=== PATIENT | female | born 1960 | race Caucasian/White ===

== ENCOUNTER 2020-06-18 13:35 | Inpatient (IN) | payer BC ==
[2020-06-18] MEDS ORDERED: Sodium Chloride 0.9% 1,000 ML IV SCH ×2 (13:45→14:45)
[2020-06-18] MEDS ORDERED: Ondansetron 4 MG/2 ML SDV IVPUSH ONE (15:27)
--- NOTE | 2020-06-18 15:32 | EDM.PDOC ---
ED HPI GENERAL MEDICAL PROBLEM - General Chief Complaint: General Stated Complaint: COVID WORSENING Time Seen by Provider: 06/18/20 13:50 Source of Information: Reports: Patient History Limitations: Reports: No Limitations - History of Present Illness INITIAL COMMENTS - FREE TEXT/NARRATIVE: pt had a positive Covid on Sunday. She has been at home and not eating and drinking well. Her kids have been bringing things to her but are not able to take care of her. She has been nauseated. She feels very weak. She has not vomitied but she has been having sig diarrhea. She has not had blood in the stool. Onset: Gradual, Other ( pt has been sick for about 8-10 days. ) Duration: Hour(s): Location: Reports: Chest, Other (pt is getting very sob when she ambulates. Her sAats do drop in the low 80s. ) Associated Symptoms: Reports: Diaphoresis, Loss of Appetite, Nausea/Vomiting, Ot her ( diarrhea. 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 Musculoskeletal History: Reports: Other (See Below) Other Musculoskeletal History: right elbow pain Endocrine/Metabolic History: Reports: Diabetes, Type II - Infectious Disease History Infectious Disease History: Reports: Chicken Pox - Past Surgical History Other HEENT Surgeries/Procedures: thorwaltz bursa Other Female Surgeries/Procedures: right oophorectomy Other Musculoskeletal Surgeries/Procedures:: ankle surgery Dermatological Surgical History: Reports: Other (See Below) Social & Family History - Tobacco Use Tobacco Use Status *Q: Never Tobacco User Second Hand Smoke Exposure: No - Caffeine Use Caffeine Use: Reports: Soda, Tea - Recreational Drug Use Recreational Drug Use: No ED ROS GENERAL - Review of Systems Review Of Systems: See Below Constitutional: Reports: No Symptoms HEENT: Reports: No Symptoms Respiratory: Reports: Shortness of Breath, Other (pt is sob with any activity. ) Cardiovascular: Reports: No Symptoms Endocrine: Reports: No Symptoms GI/Abdominal: Reports: Diarrhea, Decreased Appetite, Nausea : Reports: No Symptoms Musculoskeletal: Reports: No Symptoms Skin: Reports: No Symptoms Neurological: Reports: No Symptoms Psychiatric: Reports: Depression ED EXAM, GENERAL - Physical Exam Exam: See Below Free Text/Narrative:: pt arrived with sob with any activity. She is eating and drinking poorly. She is coughing. She is complaining of severe diarrhe.a Exam Limited By: No Limitations General Appearance: Alert, Anxious, Mild Distress Ears: Normal TMs Nose: Normal Inspection Throat/Mouth: Normal Inspection Head: Atraumatic Neck: Normal Inspection Respiratory/Chest: Decreased Breath Sounds, Rhonchi Cardiovascular: Regular Rate, Rhythm GI/Abdominal: Soft, Non-Tender (Female) Exam: Deferred Rectal (Female) Exam: Deferred Back Exam: Normal Inspection Extremities: Normal Inspection Neurological: Alert, Oriented, Normal Cognition Psychiatric: Flat Affect Course - Vital Signs Last Recorded V/S: Last Vital Signs Temp 36.3 C 06/18/20 13:57 Pulse 87 06/18/20 14:25 Resp 26 H 06/18/20 14:25 BP 166/84 H 06/18/20 14:25 Pulse Ox 90 L 06/18/20 14:25 - Orders/Labs/Meds Orders: Active Orders 24 hr Category Date Time Status Chest 1V Frontal [CR] Stat Exams 06/18/20 13:40 Taken UA W/MICROSCOPIC [URIN] Urgent Lab 06/18/20 13:38 Ordered Ondansetron [Zofran] Med 06/18/20 15:27 Once 4 mg IVPUSH ONETIME ONE Sodium Chloride 0.9% [Normal Saline] 1,000 ml Med 06/18/20 13:45 Active IV ASDIRECTED Sodium Chloride 0.9% [Normal Saline] 1,000 ml Med 06/18/20 14:45 Active IV ASDIRECTED Medication Orders Sodium Chloride (Normal Saline) 1,000 mls @ 999 mls/hr IV ASDIRECTED NINA Last Admin: 06/18/20 14:07 Dose: 999 mls/hr Documented by: EDNA Sodium Chloride (Normal Saline) 1,000 mls @ 250 mls/hr IV ASDIRECTED [facility] Labs: Laboratory Tests 06/18/20 06/18/20 06/18/20 Range/Units 13:55 13:55 13:55 WBC 5.8 (4.5-11.0) K/uL RBC 4.99 (3.30-5.50) M/uL Hgb 13.0 (12.0-15.0) g/dL Hct 39.8 (36.0-48.0) % MCV 80 (80-98) fL MCH 26 L (27-31) pg MCHC 33 (32-36) % Plt Count 267 (150-400) K/uL Neut % (Auto) 63 (36-66) % Lymph % (Auto) 24 (24-44) % [place] % (Auto) 12 H (2-6) % Eos % (Auto) 0 L (2-4) % Baso % (Auto) 0 (0-1) % D-Dimer, Quantitative 774.6 H (0.0-500.0) ng/mL Sodium 139 L (140-148) mmol/L Potassium 3.5 L (3.6-5.2) mmol/L Chloride 100 (100-108) mmol/L Carbon Dioxide 27 (21-32) mmol/L Anion Gap 15.5 H (5.0-14.0) mmol/L BUN 12 (7-18) mg/dL Creatinine 0.8 (0.6-1.0) mg/dL Est Cr Clr Drug Dosing 65.38 mL/min Estimated GFR (MDRD) > 60 (>60) Glucose 128 H (74-106) mg/dL Calcium 8.8 (8.5-10.1) mg/dL Total Bilirubin 0.3 (0.2-1.0) mg/dL AST 42 H D (15-37) U/L ALT 42 (12-78) U/L Alkaline Phosphatase 59 (46-116) U/L C-Reactive Protein 7.82 H (0.0-0.3) mg/dL Total Protein 7.1 (6.4-8.2) g/dL Albumin 2.9 L (3.4-5.0) g/dL Globulin 4.2 H (2.3-3.5) g/dL Albumin/Globulin Ratio 0.7 L (1.2-2.2) Meds: Medications Generic Name Dose Route Start Last Admin Trade Name Lissette PRN Reason Stop Dose Admin Sodium Chloride 1,000 mls @ 999 mls/hr 06/18/20 13:45 06/18/20 14:07 Normal Saline IV 999 mls/hr ASDIRECTED NINA Administration Sodium Chloride 1,000 mls @ 250 mls/hr 06/18/20 14:45 Normal Saline IV ASDIRECTED NINA - Re-Assessments/Exams Free Text/Narrative Re-Assessment/Exam: 06/18/20 15:34 pt has a ddimer at over 700. Her crp is greater than 7. Departure - Departure Time of Disposition: 15:35 Disposition: Admitted As Inpatient 67 Condition: Fair Clinical Impression: COVID-19, Hypoxia, Dehydration - Discharge Information Referrals: PCP,None [Primary Care Provider] - Care Plan Goals: admit to Dr Miguel Sepsis Event Note (ED) - Evaluation Sepsis Screening Result: Possible Sepsis Risk - Focused Exam Vital Signs: Vital Signs Temp Pulse Resp BP Pulse Ox 06/18/20 14:25 87 26 H 166/84 H 90 L 06/18/20 13:57 36.3 C 92 17 165/91 H 93 L 06/18/20 13:45 36.3 C 92 17 165/91 H 93 L - My Orders Last 24 Hours: My Active Orders 06/18/20 13:38 UA W/MICROSCOPIC [URIN] Urgent 06/18/20 13:40 Chest 1V Frontal [CR] Stat 06/18/20 13:45 Sodium Chloride 0.9% [Normal Saline] 1,000 ml IV ASDIRECTED 06/18/20 14:45 Sodium Chloride 0.9% [Normal Saline] 1,000 ml IV ASDIRECTED 06/18/20 15:27 Ondansetron [Zofran] 4 mg IVPUSH ONETIME ONE - Assessment/Plan Last 24 Hours: My Active Orders 06/18/20 13:38 UA W/MICROSCOPIC [URIN] Urgent 06/18/20 13:40 Chest 1V Frontal [CR] Stat 06/18/20 13:45 Sodium Chloride 0.9% [Normal Saline] 1,000 ml IV ASDIRECTED 06/18/20 14:45 Sodium Chloride 0.9% [Normal Saline] 1,000 ml IV ASDIRECTED 06/18/20 15:27 Ondansetron [Zofran] 4 mg IVPUSH ONETIME ONE
[2020-06-18] MEDS ORDERED: Ondansetron 4 MG/2 ML SDV IV PRN (16:37)
[2020-06-18] MEDS ORDERED: Non-Formulary Medication 1 Each (Metformin [Glucophage Xr] 1,000 MG) PO SCH (17:00)
--- NOTE | 2020-06-18 17:55 | PCM.HP.2 ---
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 Since that time she has had some diminished but not complete loss of taste/smell. She has had weakness, dyspnea, increased work of breathing, cough, fever between 100-101.9 F. 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 She noted, specifically, not being able to get up from the chair. She is currently on 2-4 L NC oxygen and is maintaining her oxygenation in the 92-95% range. She has a known h/o Ulcerative colitis which is actively treated. She also has h/o DM. She is a FULL CODE. 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 Musculoskeletal History: Reports: Other (See Below) Other Musculoskeletal History: right elbow pain Endocrine/Metabolic History: Reports: Diabetes, Type II - Infectious Disease History Infectious Disease History: Reports: Chicken Pox - Past Surgical History Other HEENT Surgeries/Procedures: thorwaltz bursa Other Female Surgeries/Procedures: right oophorectomy Other Musculoskeletal Surgeries/Procedures:: ankle surgery Dermatological Surgical History: Reports: Other (See Below) Social & Family History - Tobacco Use Tobacco Use Status *Q: Never Tobacco User Second Hand Smoke Exposure: No - Caffeine Use Caffeine Use: Reports: Soda - Recreational Drug Use Recreational Drug Use: No H&P Review of Systems - Review of Systems: Review Of Systems: See Below General: Reports: Fever, Chills, Malaise, Weakness, Fatigue HEENT: Reports: Sore Throat Pulmonary: Reports: Shortness of Breath, Wheezing, Cough Cardiovascular: Reports: No Symptoms Gastrointestinal: Reports: No Symptoms Genitourinary: Reports: No Symptoms Musculoskeletal: Reports: No Symptoms Skin: Reports: No Symptoms Psychiatric: Reports: No Symptoms Neurological: Reports: No Symptoms Hematologic/Lymphatic: Reports: No Symptoms Immunologic: Reports: No Symptoms Exam - Exam Exam: See Below - Vital Signs Vital Signs: Last Vital Signs Temp 99.8 F 06/18/20 16:37 Pulse 79 06/18/20 16:37 Resp 16 06/18/20 16:37 BP 174/96 H 06/18/20 16:37 Pulse Ox 97 06/18/20 17:19 Weight: 236 lb 2 oz - Exam Quality Assessment: Supplemental Oxygen, DVT Prophylaxis. No: Central Line/PICC, Urinary Catheter General: Alert, Oriented, Cooperative, Moderate Distress HEENT: PERRLA, EOMI, Pupils Equal, Pupils Reactive Lungs: Decreased Breath Sounds, Crackles. No: Clear to Auscultation, Normal Respiratory Effort Cardiovascular: Regular Rate, Regular Rhythm, Normal S1, Normal S2. No: Bradycardia, Tachycardia, Systolic Murmur, Diastolic Murmur GI/Abdominal Exam: Normal Bowel Sounds, Soft, Non-Tender, No Distention, No Abnormal Bruit, No Mass Back Exam: Normal Inspection Extremities: Normal Inspection, Normal Range of Motion, Normal Capillary Refill Peripheral Pulses: 4+: Posterior Tibial (L), Posterior Tibial (R), Dorsalis Pe dis (L), Dorsalis Pedis (R) Skin: Warm, Dry, Intact Neurological: Cranial Nerves Intact, Reflexes Equal Bilateral, Strength Equal Bilateral, Normal Speech, Normal Tone, Sensation Intact Neuro Extensive - Mental Status: Alert, Oriented x3, Normal Mood/Affect, Normal Cognition, Memory Intact Neuro Extensive - Motor, Sensory, Reflexes: CN II-XII Intact, Normal Gait, Normal Reflexes DTR: 2+: Patella (L), Patella (R) Psychiatric: Alert, Normal Affect, Normal Mood - Patient Data Lab Results Last 24 hrs: Laboratory Results - last 24 hr 06/18/20 06/18/20 06/18/20 Range/Units 13:55 13:55 13:55 WBC 5.8 (4.5-11.0) K/uL RBC 4.99 (3.30-5.50) M/uL Hgb 13.0 (12.0-15.0) g/dL Hct 39.8 (36.0-48.0) % MCV 80 (80-98) fL MCH 26 L (27-31) pg MCHC 33 (32-36) % Plt Count 267 (150-400) K/uL Neut % (Auto) 63 (36-66) % Lymph % (Auto) 24 (24-44) % [place] % (Auto) 12 H (2-6) % Eos % (Auto) 0 L (2-4) % Baso % (Auto) 0 (0-1) % D-Dimer, Quantitative 774.6 H (0.0-500.0) ng/mL Sodium 139 L (140-148) mmol/L Potassium 3.5 L (3.6-5.2) mmol/L Chloride 100 (100-108) mmol/L Carbon Dioxide 27 (21-32) mmol/L Anion Gap 15.5 H (5.0-14.0) mmol/L BUN 12 (7-18) mg/dL Creatinine 0.8 (0.6-1.0) mg/dL Est Cr Clr Drug Dosing 65.38 mL/min Estimated GFR (MDRD) > 60 (>60) Glucose 128 H (74-106) mg/dL Calcium 8.8 (8.5-10.1) mg/dL Total Bilirubin 0.3 (0.2-1.0) mg/dL AST 42 H D (15-37) U/L ALT 42 (12-78) U/L Alkaline Phosphatase 59 (46-116) U/L C-Reactive Protein 7.82 H (0.0-0.3) mg/dL Total Protein 7.1 (6.4-8.2) g/dL Albumin 2.9 L (3.4-5.0) g/dL Globulin 4.2 H (2.3-3.5) g/dL Albumin/Globulin Ratio 0.7 L (1.2-2.2) Result Diagrams: 06/18/20 13:55 06/18/20 13:55 Sepsis Event Note - Evaluation Sepsis Screening Result: Possible Sepsis Risk - Focused Exam Vital Signs: Vital Signs Temp Pulse Resp BP Pulse Ox Pulse Ox 06/18/20 17:19 97 06/18/20 16:37 99.8 F 79 16 174/96 H 97 97 06/18/20 15:57 83 15 169/85 H 97 06/18/20 14:25 87 26 H 166/84 H 90 L 06/18/20 13:57 97.4 F 92 17 165/91 H 93 L 06/18/20 13:45 97.4 F 92 17 165/91 H 93 L Problem List Initiated/Reviewed/Updated: Yes Orders Last 24hrs: Active Orders 24 hr Category Date Time Status Patient Status [ADT] Routine ADT 06/18/20 16:37 Active Ambulate [RC] QID Care 06/18/20 16:37 Active Ambulate [RC] QID Care 06/18/20 16:37 Active Blood Glucose Check, Bedside [RC] QIDACANDBED Care 06/18/20 16:37 Active Cardiac Monitoring [RC] .As Directed Care 06/18/20 16:38 Active Communication Order [RC] PER UNIT ROUTINE Care 06/18/20 16:43 Active Diabetes Education [RC] Click to Edit Care 06/18/20 16:45 Active Notify Provider [RC] PRN Care 06/18/20 16:45 Active Oxygen Therapy [RC] PRN Care 06/18/20 16:37 Active Positioning, Patient [RC] ASDIRECTED Care 06/18/20 16:40 Active Pulse Oximetry [RC] CONTINUOUS Care 06/18/20 16:38 Active Up to Chair [RC] QID Care 06/18/20 16:37 Active VTE/DVT Education [RC] Per Unit Routine Care 06/18/20 16:37 Active Verify Patient Consent Obtain [RC] ASDIRECTED Care 06/18/20 16:37 Active Vital Signs [RC] Q4H Care 06/18/20 16:37 Active Regular Diet [DIET] Diet 06/18/20 Dinner Active Chest 1V Frontal [CR] Stat Exams 06/18/20 13:40 Taken C-REACTIVE PROTEIN [CHEM] DAILY Lab 06/19/20 16:37 Ordered C-REACTIVE PROTEIN [CHEM] DAILY Lab 06/19/20 16:45 Ordered C-REACTIVE PROTEIN [CHEM] DAILY Lab 06/20/20 16:37 Ordered C-REACTIVE PROTEIN [CHEM] DAILY Lab 06/20/20 16:45 Ordered C-REACTIVE PROTEIN [CHEM] DAILY Lab 06/21/20 16:37 Ordered C-REACTIVE PROTEIN [CHEM] DAILY Lab 06/21/20 16:45 Ordered C-REACTIVE PROTEIN [CHEM] DAILY Lab 06/22/20 16:37 Ordered C-REACTIVE PROTEIN [CHEM] DAILY Lab 06/22/20 16:45 Ordered CBC WITH AUTO DIFF [HEME] DAILY Lab 06/19/20 16:45 Ordered CBC WITH AUTO DIFF [HEME] DAILY Lab 06/20/20 16:45 Ordered CBC WITH AUTO DIFF [HEME] DAILY Lab 06/21/20 16:45 Ordered CBC WITH AUTO DIFF [HEME] DAILY Lab 06/22/20 16:45 Ordered COMPREHENSIVE METABOLIC PN,CMP [CHEM] DAILY Lab 06/19/20 16:45 Ordered COMPREHENSIVE METABOLIC PN,CMP [CHEM] DAILY Lab 06/20/20 16:45 Ordered COMPREHENSIVE METABOLIC PN,CMP [CHEM] DAILY Lab 06/21/20 16:45 Ordered COMPREHENSIVE METABOLIC PN,CMP [CHEM] DAILY Lab 06/22/20 16:45 Ordered D-DIMER QUANTITATIVE [COAG] DAILY Lab 06/19/20 16:37 Ordered D-DIMER QUANTITATIVE [COAG] DAILY Lab 06/20/20 16:37 Ordered D-DIMER QUANTITATIVE [COAG] DAILY Lab 06/21/20 16:37 Ordered D-DIMER QUANTITATIVE [COAG] DAILY Lab 06/22/20 16:37 Ordered FERRITIN [CHEM] DAILY Lab 06/19/20 16:37 Ordered FERRITIN [CHEM] DAILY Lab 06/20/20 16:37 Ordered FERRITIN [CHEM] DAILY Lab 06/21/20 16:37 Ordered FERRITIN [CHEM] DAILY Lab 06/22/20 16:37 Ordered INFLUENZA A+B AG SCREEN [RM] Stat Lab 06/18/20 16:37 Ordered LACTATE DEHYDROGENASE,LDH [CHEM] DAILY Lab 06/19/20 16:37 Ordered LACTATE DEHYDROGENASE,LDH [CHEM] DAILY Lab 06/20/20 16:37 Ordered LACTATE DEHYDROGENASE,LDH [CHEM] DAILY Lab 06/21/20 16:37 Ordered LACTATE DEHYDROGENASE,LDH [CHEM] DAILY Lab 06/22/20 16:37 Ordered PROCALCITONIN [CHEM] DAILY Lab 06/19/20 16:37 Ordered PROCALCITONIN [CHEM] DAILY Lab 06/20/20 16:37 Ordered PROCALCITONIN [CHEM] DAILY Lab 06/21/20 16:37 Ordered PROCALCITONIN [CHEM] DAILY Lab 06/22/20 16:37 Ordered UA W/MICROSCOPIC [URIN] Urgent Lab 06/18/20 13:38 Ordered Acetaminophen [TylenoL] Med 06/18/20 16:37 Active 650 mg PO Q4H PRN Acetaminophen [TylenoL] Med 06/18/20 16:37 Active 650 mg PO Q4H PRN Alogliptin Benzoate [Alogliptin] Med 06/19/20 09:00 Active 25 mg PO DAILY Balsalazide [Colazal] Med 06/18/20 21:00 Pending 3 tab PO BID Enoxaparin [Lovenox] Med 06/18/20 16:45 Active 40 mg SUBCUT DAILY@1600 Insulin Lispro [HumaLOG] Med 06/18/20 17:00 Active See Protocol SUBCUT QIDACANDBED Ondansetron [Zofran ODT] Med 06/18/20 16:37 Active 4 mg PO Q6H PRN Ondansetron [Zofran] Med 06/18/20 16:37 Active 4 mg IV Q6H PRN Remdesivir (Eua) [Remdesivir (EUA)] 100 mg Med 06/19/20 16:00 Active Sodium Chloride 0.9% [Normal Saline] 100 ml IV Q24H Remdesivir (Eua) [Remdesivir (EUA)] 200 mg Med 06/18/20 18:00 Active Sodium Chloride 0.9% [Normal Saline] 250 ml IV ONETIME Sodium Chloride 0.9% [Normal Saline] 1,000 ml Med 06/18/20 14:45 Active IV ASDIRECTED dexAMETHasone [Decadron] Med 06/18/20 18:00 Active 6 mg IVPUSH DAILY@1600 metFORMIN [Glucophage] Med 06/18/20 17:00 Active 1,000 mg PO BIDMEALS Isolation [COMM] Routine Oth 06/18/20 16:42 Ordered Isolation [COMM] Stat Oth 06/18/20 16:37 Ordered Resuscitation Status Routine Resus Stat 06/18/20 16:37 Ordered Medication Orders Acetaminophen (Tylenol) 650 mg PO Q4H PRN PRN Reason: Fever Greater Than 101 Acetaminophen (Tylenol) 650 mg PO Q4H PRN PRN Reason: Pain (Mild 1-3)/fever Alogliptin Benzoate (Alogliptin) 25 mg PO DAILY [facility] Dexamethasone (Decadron) 6 mg IVPUSH DAILY@1600 [facility] Stop: 06/27/20 16:01 Enoxaparin Sodium (Lovenox) 40 mg SUBCUT DAILY@1600 NINA Sodium Chloride (Normal Saline) 1,000 mls @ 250 mls/hr IV ASDIRECTED [facility] Remdesivir 200 mg/ Sodium (Chloride) 250 mls @ 250 mls/hr IV ONETIME ONE Stop: 06/18/20 18:59 Remdesivir 100 mg/ Sodium (Chloride) 100 mls @ 100 mls/hr IV Q24H NINA Stop: 06/22/20 16:59 Insulin Human Lispro (Humalog) 0 unit SUBCUT QIDACANDBED [facility]; Protocol Metformin HCl (Glucophage) 1,000 mg PO BIDMEALS [facility] Non-Formulary Medication (Balsalazide [Colazal]) 3 tab PO BID NINA Ondansetron HCl (Zofran Odt) 4 mg PO Q6H PRN PRN Reason: Nausea able to take PO Ondansetron HCl (Zofran) 4 mg IV Q6H PRN PRN Reason: Nausea/Vomiting Assessment/Plan Comment:: ASSESSMENT AND PLAN: 1. HEENT Some loss of taste and smell most c/w COVID 19 2. Cardiac No active issues at present 3. Pulmonary COVID 19 active infection. positive test, elevated CPR, D-dimer, ferritin. On 2-4L NC with good effect - Oxygen to keep SpO2 between 90-96% - Start remdesivir 200 mg IV x 1 today, 100 mg IV daily thereafter (Day 1/5) - Dexamethasone 6 mg IV daily (Day 1/5) - Convalescent plasma 1 unit daily (Day 15) - Hold IV atbx for time being - Proning as appropriate - Discussed progression and course of COVID 19 up to and including possible intubation 4. Gastrointestinal Has known h/o UC which is currently stable - Hold immunosuppresives for time being 5. Renal/F/E/N PO as tolerated Monitor chemistries Caution with IV fluids 6. Endocrine Has h/o Type II DM - Continue metformin - SSI coverage - Anticipate increases in glucose with the initiation of dexamethasone 7. Infectious Disease Stable, COVID 19 as above 8. Neurological No active concerns other than generalized weakness due to COVID 9. Musculoskeletal No issues 10. Heme Stable 11. Psych/Mental health Stable, no active issues Disposition: Anticipate D/C to home when stabilized HOSPITALIST: Pablo Miguel M.D. 18 June 2020; 1800 h - Mortality Measure Prognosis:: Good
[2020-06-18] MEDS: Enoxaparin 40 MG/0.4 ML Syringe SUBCUT SCH ×2 (18:14→18:38)
[2020-06-18] MEDS: Insulin Lispro 100 Unit/ML 3 ML KwikPen SUBCUT SCH ×2 (18:15→21:41)
[2020-06-18] MEDS: metFORMIN 500 MG Tab PO SCH (18:15)
[2020-06-18] MEDS: Dexamethasone 4 MG/ML SDV IVPUSH SCH (18:17)
[2020-06-18] MEDS: Ondansetron 4 MG Tab.DIS PO PRN (18:25)
[2020-06-18] MEDS: Acetaminophen 325 MG Tab PO PRN (21:34)
[2020-06-19] MEDS: Acetaminophen 325 MG Tab PO PRN ×4 (06:20→20:21)
[2020-06-19] MEDS: Insulin Lispro 100 Unit/ML 3 ML KwikPen SUBCUT SCH ×4 (08:46→21:23)
[2020-06-19] MEDS: metFORMIN 500 MG Tab PO SCH ×2 (08:46→16:59)
[2020-06-19] MEDS: Ondansetron 4 MG Tab.DIS PO PRN (08:53)
--- NOTE | 2020-06-19 13:36 | PCM.PN ---
- General Info Date of Service: 06/19/20 Admission Dx/Problem (Free Text): 1. Acute COVID Pna 2. Hypoxia d/t 1 Subjective Update: Patient is still holding on 2 L NC oxygen. She is tolerating plasma, remdesivir, dexamethasone well. No other complaints noted. Patient is ambulating reasonably well. Functional Status: Reports: Pain Controlled, Tolerating Diet - Review of Systems General: Reports: Weakness, Fatigue HEENT: Reports: No Symptoms Pulmonary: Reports: Shortness of Breath, Cough Cardiovascular: Reports: No Symptoms Gastrointestinal: Reports: No Symptoms Genitourinary: Reports: No Symptoms Musculoskeletal: Reports: No Symptoms - Patient Data Vitals - Most Recent: Last Vital Signs Temp 99.0 F 06/19/20 11:09 Pulse 62 06/19/20 11:00 Resp 18 06/19/20 11:00 BP 152/68 H 06/19/20 11:00 Pulse Ox 95 06/19/20 11:00 Weight - Most Recent: 236 lb 2 oz I&O - Last 24 Hours: Intake & Output 06/18/20 06/19/20 06/19/20 22:59 06:59 14:59 Intake Total 250 1002 Output Total 250 1450 500 Balance 0 -448 -500 Lab Results Last 24 Hours: Laboratory Results - last 24 hr 06/18/20 06/18/20 06/18/20 Range/Units 13:38 13:55 13:55 WBC 5.8 (4.5-11.0) K/uL RBC 4.99 (3.30-5.50) M/uL Hgb 13.0 (12.0-15.0) g/dL Hct 39.8 (36.0-48.0) % MCV 80 (80-98) fL MCH 26 L (27-31) pg MCHC 33 (32-36) % Plt Count 267 (150-400) K/uL Neut % (Auto) 63 (36-66) % Lymph % (Auto) 24 (24-44) % [place] % (Auto) 12 H (2-6) % Eos % (Auto) 0 L (2-4) % Baso % (Auto) 0 (0-1) % D-Dimer, Quantitative 774.6 H (0.0-500.0) ng/mL Sodium (140-148) mmol/L Potassium (3.6-5.2) mmol/L Chloride (100-108) mmol/L Carbon Dioxide (21-32) mmol/L Anion Gap (5.0-14.0) mmol/L BUN (7-18) mg/dL Creatinine (0.6-1.0) mg/dL Est Cr Clr Drug Dosing mL/min Estimated GFR (MDRD) (>60) Glucose (74-106) mg/dL POC Glucose (74-106) MG/DL Calcium (8.5-10.1) mg/dL Ferritin (8-388) ng/ml Total Bilirubin (0.2-1.0) mg/dL AST (15-37) U/L ALT (12-78) U/L Alkaline Phosphatase (46-116) U/L Lactate Dehydrogenase (82-234) U/L C-Reactive Protein (0.0-0.3) mg/dL Total Protein (6.4-8.2) g/dL Albumin (3.4-5.0) g/dL Globulin (2.3-3.5) g/dL Albumin/Globulin Ratio (1.2-2.2) Procalcitonin ng/mL Urine Color Yellow (YELLOW) Urine Appearance Clear (CLEAR) Urine pH 6.0 (5.0-8.0) Ur Specific [place] >= 1.030 (1.008-1.030) Urine Protein 100 H (NEGATIVE) mg/dL Urine Glucose (UA) Negative (NEGATIVE) mg/dL Urine Ketones Trace H (NEGATIVE) mg/dL Urine Occult Blood Negative (NEGATIVE) Urine Nitrite Negative (NEGATIVE) Urine Bilirubin Negative (NEGATIVE) Urine Urobilinogen 0.2 (0.2-1.0) EU/dL Ur Leukocyte Esterase Negative (NEGATIVE) Urine RBC Not seen (0-5) Urine WBC 0-5 (0-5) Ur Epithelial Cells Few Urine Bacteria Not seen Blood Type 06/18/20 06/18/20 06/18/20 Range/Units 13:55 16:30 21:00 WBC (4.5-11.0) K/uL RBC (3.30-5.50) M/uL Hgb (12.0-15.0) g/dL Hct (36.0-48.0) % MCV (80-98) fL MCH (27-31) pg MCHC (32-36) % Plt Count (150-400) K/uL Neut % (Auto) (36-66) % Lymph % (Auto) (24-44) % [place] % (Auto) (2-6) % Eos % (Auto) (2-4) % Baso % (Auto) (0-1) % D-Dimer, Quantitative (0.0-500.0) ng/mL Sodium 139 L (140-148) mmol/L Potassium 3.5 L (3.6-5.2) mmol/L Chloride 100 (100-108) mmol/L Carbon Dioxide 27 (21-32) mmol/L Anion Gap 15.5 H (5.0-14.0) mmol/L BUN 12 (7-18) mg/dL Creatinine 0.8 (0.6-1.0) mg/dL Est Cr Clr Drug Dosing 65.38 mL/min Estimated GFR (MDRD) > 60 (>60) Glucose 128 H (74-106) mg/dL POC Glucose 118 H 191 H (74-106) MG/DL Calcium 8.8 (8.5-10.1) mg/dL Ferritin (8-388) ng/ml Total Bilirubin 0.3 (0.2-1.0) mg/dL AST 42 H D (15-37) U/L ALT 42 (12-78) U/L Alkaline Phosphatase 59 (46-116) U/L Lactate Dehydrogenase (82-234) U/L C-Reactive Protein 7.82 H (0.0-0.3) mg/dL Total Protein 7.1 (6.4-8.2) g/dL Albumin 2.9 L (3.4-5.0) g/dL Globulin 4.2 H (2.3-3.5) g/dL Albumin/Globulin Ratio 0.7 L (1.2-2.2) Procalcitonin ng/mL Urine Color (YELLOW) Urine Appearance (CLEAR) Urine pH (5.0-8.0) Ur Specific [place] (1.008-1.030) Urine Protein (NEGATIVE) mg/dL Urine Glucose (UA) (NEGATIVE) mg/dL Urine Ketones (NEGATIVE) mg/dL Urine Occult Blood (NEGATIVE) Urine Nitrite (NEGATIVE) Urine Bilirubin (NEGATIVE) Urine Urobilinogen (0.2-1.0) EU/dL Ur Leukocyte Esterase (NEGATIVE) Urine RBC (0-5) Urine WBC (0-5) Ur Epithelial Cells Urine Bacteria Blood Type 06/18/20 06/19/20 06/19/20 Range/Units 23:58 06:00 06:00 WBC (4.5-11.0) K/uL RBC (3.30-5.50) M/uL Hgb (12.0-15.0) g/dL Hct (36.0-48.0) % MCV (80-98) fL MCH (27-31) pg MCHC (32-36) % Plt Count (150-400) K/uL Neut % (Auto) (36-66) % Lymph % (Auto) (24-44) % [place] % (Auto) (2-6) % Eos % (Auto) (2-4) % Baso % (Auto) (0-1) % D-Dimer, Quantitative 517.09 H (0.0-500.0) ng/mL Sodium 139 L (140-148) mmol/L Potassium 3.9 (3.6-5.2) mmol/L Chloride 101 (100-108) mmol/L Carbon Dioxide 27 (21-32) mmol/L Anion Gap 14.9 H (5.0-14.0) mmol/L BUN 11 (7-18) mg/dL Creatinine 0.6 (0.6-1.0) mg/dL Est Cr Clr Drug Dosing 87.18 mL/min Estimated GFR (MDRD) > 60 (>60) Glucose 164 H (74-106) mg/dL POC Glucose (74-106) MG/DL Calcium 8.5 (8.5-10.1) mg/dL Ferritin 202 (8-388) ng/ml Total Bilirubin 0.3 (0.2-1.0) mg/dL AST 32 (15-37) U/L ALT 41 (12-78) U/L Alkaline Phosphatase 57 (46-116) U/L Lactate Dehydrogenase 269 H (82-234) U/L C-Reactive Protein 6.00 H (0.0-0.3) mg/dL Total Protein 7.2 (6.4-8.2) g/dL Albumin 2.9 L (3.4-5.0) g/dL Globulin 4.3 H (2.3-3.5) g/dL Albumin/Globulin Ratio 0.7 L (1.2-2.2) Procalcitonin ng/mL Urine Color (YELLOW) Urine Appearance (CLEAR) Urine pH (5.0-8.0) Ur Specific [place] (1.008-1.030) Urine Protein (NEGATIVE) mg/dL Urine Glucose (UA) (NEGATIVE) mg/dL Urine Ketones (NEGATIVE) mg/dL Urine Occult Blood (NEGATIVE) Urine Nitrite (NEGATIVE) Urine Bilirubin (NEGATIVE) Urine Urobilinogen (0.2-1.0) EU/dL Ur Leukocyte Esterase (NEGATIVE) Urine RBC (0-5) Urine WBC (0-5) Ur Epithelial Cells Urine Bacteria Blood Type A POSITIVE 06/19/20 06/19/20 06/19/20 Range/Units 06:00 06:00 07:30 WBC 3.6 L (4.5-11.0) K/uL RBC 4.82 (3.30-5.50) M/uL Hgb 12.6 (12.0-15.0) g/dL Hct 38.3 (36.0-48.0) % MCV 80 (80-98) fL MCH 26 L (27-31) pg MCHC 33 (32-36) % Plt Count 292 (150-400) K/uL Neut % (Auto) 64 (36-66) % Lymph % (Auto) 28 (24-44) % [place] % (Auto) 8 H (2-6) % Eos % (Auto) 0 L (2-4) % Baso % (Auto) 0 (0-1) % D-Dimer, Quantitative (0.0-500.0) ng/mL Sodium (140-148) mmol/L Potassium (3.6-5.2) mmol/L Chloride (100-108) mmol/L Carbon Dioxide (21-32) mmol/L Anion Gap (5.0-14.0) mmol/L BUN (7-18) mg/dL Creatinine (0.6-1.0) mg/dL Est Cr Clr Drug Dosing mL/min Estimated GFR (MDRD) (>60) Glucose (74-106) mg/dL POC Glucose 136 H (74-106) MG/DL Calcium (8.5-10.1) mg/dL Ferritin (8-388) ng/ml Total Bilirubin (0.2-1.0) mg/dL AST (15-37) U/L ALT (12-78) U/L Alkaline Phosphatase (46-116) U/L Lactate Dehydrogenase (82-234) U/L C-Reactive Protein (0.0-0.3) mg/dL Total Protein (6.4-8.2) g/dL Albumin (3.4-5.0) g/dL Globulin (2.3-3.5) g/dL Albumin/Globulin Ratio (1.2-2.2) Procalcitonin < 0.05 ng/mL Urine Color (YELLOW) Urine Appearance (CLEAR) Urine pH (5.0-8.0) Ur Specific [place] (1.008-1.030) Urine Protein (NEGATIVE) mg/dL Urine Glucose (UA) (NEGATIVE) mg/dL Urine Ketones (NEGATIVE) mg/dL Urine Occult Blood (NEGATIVE) Urine Nitrite (NEGATIVE) Urine Bilirubin (NEGATIVE) Urine Urobilinogen (0.2-1.0) EU/dL Ur Leukocyte Esterase (NEGATIVE) Urine RBC (0-5) Urine WBC (0-5) Ur Epithelial Cells Urine Bacteria Blood Type 06/19/20 Range/Units 11:30 WBC (4.5-11.0) K/uL RBC (3.30-5.50) M/uL Hgb (12.0-15.0) g/dL Hct (36.0-48.0) % MCV (80-98) fL MCH (27-31) pg MCHC (32-36) % Plt Count (150-400) K/uL Neut % (Auto) (36-66) % Lymph % (Auto) (24-44) % [place] % (Auto) (2-6) % Eos % (Auto) (2-4) % Baso % (Auto) (0-1) % D-Dimer, Quantitative (0.0-500.0) ng/mL Sodium (140-148) mmol/L Potassium (3.6-5.2) mmol/L Chloride (100-108) mmol/L Carbon Dioxide (21-32) mmol/L Anion Gap (5.0-14.0) mmol/L BUN (7-18) mg/dL Creatinine (0.6-1.0) mg/dL Est Cr Clr Drug Dosing mL/min Estimated GFR (MDRD) (>60) Glucose (74-106) mg/dL POC Glucose 149 H (74-106) MG/DL Calcium (8.5-10.1) mg/dL Ferritin (8-388) ng/ml Total Bilirubin (0.2-1.0) mg/dL AST (15-37) U/L ALT (12-78) U/L Alkaline Phosphatase (46-116) U/L Lactate Dehydrogenase (82-234) U/L C-Reactive Protein (0.0-0.3) mg/dL Total Protein (6.4-8.2) g/dL Albumin (3.4-5.0) g/dL Globulin (2.3-3.5) g/dL Albumin/Globulin Ratio (1.2-2.2) Procalcitonin ng/mL Urine Color (YELLOW) Urine Appearance (CLEAR) Urine pH (5.0-8.0) Ur Specific [place] (1.008-1.030) Urine Protein (NEGATIVE) mg/dL Urine Glucose (UA) (NEGATIVE) mg/dL Urine Ketones (NEGATIVE) mg/dL Urine Occult Blood (NEGATIVE) Urine Nitrite (NEGATIVE) Urine Bilirubin (NEGATIVE) Urine Urobilinogen (0.2-1.0) EU/dL Ur Leukocyte Esterase (NEGATIVE) Urine RBC (0-5) Urine WBC (0-5) Ur Epithelial Cells Urine Bacteria Blood Type [place] Results Last 24 Hours: Microbiology 06/18/20 18:05 Influenza Type A Antigen Screen - Final Nasopharyngeal Swab - Nare, Unspecified NEGATIVE INFLUENZA A VIRUS AG REFERENCE RANGE: NEGATIVE Influenza Type B Antigen Screen - Final NEGATIVE INFLUENZA B VIRUS AG REFERENCE RANGE: NEGATIVE Med Orders - Current: Current Medications Acetaminophen (Tylenol) 650 mg PO Q4H PRN PRN Reason: Fever Greater Than 101 Last Admin: 06/19/20 10:39 Dose: 650 mg Documented by: Acetaminophen (Tylenol) 650 mg PO Q4H PRN PRN Reason: Pain (Mild 1-3)/fever Last Admin: 06/18/20 21:34 Dose: 650 mg Documented by: Alogliptin Benzoate (Alogliptin) 25 mg PO DAILY [facility] Last Admin: 06/19/20 08:45 Dose: 25 mg Documented by: Dexamethasone (Decadron) 6 mg IVPUSH DAILY@1600 [facility] Stop: 06/27/20 16:01 Last Admin: 06/18/20 18:17 Dose: 6 mg Documented by: Enoxaparin Sodium (Lovenox) 40 mg SUBCUT DAILY@1600 [facility] Last Admin: 06/18/20 18:38 Dose: 40 mg Documented by: Remdesivir 100 mg/ Sodium (Chloride) 100 mls @ 100 mls/hr IV Q24H [facility] Stop: 06/22/20 16:59 Insulin Human Lispro (Humalog) 0 unit SUBCUT QIDACANDBED [facility]; Protocol Last Admin: 06/19/20 12:31 Dose: Not Given Documented by: Metformin HCl (Glucophage) 1,000 mg PO BIDNVALS [facility] Last Admin: 06/19/20 08:46 Dose: 1,000 mg Documented by: (Balsalazide [ Colazal] 3 Tab) Own Med 3 tab PO BID [facility] Last Admin: 06/19/20 08:48 Dose: 3 tab Documented by: Ondansetron HCl (Zofran Odt) 4 mg PO Q6H PRN PRN Reason: Nausea able to take PO Last Admin: 06/19/20 08:53 Dose: 4 mg Documented by: Ondansetron HCl (Zofran) 4 mg IV Q6H PRN PRN Reason: Nausea/Vomiting Discontinued Medications Sodium Chloride (Normal Saline) 1,000 mls @ 999 [facility] Last Admin: 06/18/20 14:07 Dose: 999 mls/hr Documented by: Sodium Chloride (Normal Saline) 1,000 mls @ 250 mls/hr IV ASDIRECTED [facility] Remdesivir 200 mg/ Sodium (Chloride) 250 mls @ 250 mls/hr IV ONETIME ONE Stop: 06/18/20 18:59 Last Admin: 06/18/20 18:16 Dose: 250 mls/hr Documented by: Ondansetron HCl (Zofran) 4 mg IVPUSH ONETIME ONE Stop: 06/18/20 15:28 Last Admin: 06/18/20 16:47 Dose: Not Given Documented by: - Exam Quality Assessment: Supplemental Oxygen, DVT Prophylaxis. No: Central Line/PICC, Urine Catheter General: Alert, Oriented, Cooperative, No Acute Distress Lungs: Crackles Cardiovascular: Regular Rate, Regular Rhythm, No Murmurs GI/Abdominal Exam: Normal Bowel Sounds, Soft, Non-Tender, No Distention, No Abnormal Bruit, No Mass Back Exam: Normal Inspection Extremities: Normal Inspection Skin: Warm, Dry, Intact Neurological: No New Focal Deficit Psy/Mental Status: Alert, Normal Affect, Normal Mood Sepsis Event Note - Evaluation Sepsis Screening Result: No Definite Risk - Focused Exam Vital Signs: Vital Signs Temp Temp Pulse Resp BP Pulse Ox 06/19/20 11:09 99.0 F 06/19/20 11:00 99.0 F 62 18 152/68 H 95 06/19/20 07:22 95 06/19/20 06:56 98.2 F 60 18 164/74 H 94 L 06/19/20 03:45 98 F 54 L 16 149/69 H 95 06/19/20 03:18 98.4 F 59 L 16 128/71 94 L 06/19/20 02:48 98.4 F 65 16 138/64 96 06/19/20 02:33 98.5 F 66 16 152/81 H 96 06/19/20 02:20 95 06/19/20 02:18 98 F 64 16 163/78 H 95 06/19/20 02:04 97.9 F 68 16 143/74 H 94 L - Problem List Review Problem List Initiated/Reviewed/Updated: Yes - My Orders Last 24 Hours: My Active Orders 06/18/20 16:37 Patient Status [ADT] Routine Ambulate [RC] QID Oxygen Therapy [RC] PRN Up to Chair [RC] QID VTE/DVT Education [RC] Per Unit Routine Verify Patient Consent Obtain [RC] ASDIRECTED Vital Signs [RC] Q4H Acetaminophen [TylenoL] 650 mg PO Q4H PRN Acetaminophen [TylenoL] 650 mg PO Q4H PRN Ondansetron [Zofran ODT] 4 mg PO Q6H PRN Ondansetron [Zofran] 4 mg IV Q6H PRN Isolation [COMM] Stat Resuscitation Status Routine 06/18/20 16:38 Cardiac Monitoring [RC] .As Directed Pulse Oximetry [RC] CONTINUOUS 06/18/20 16:40 Positioning, Patient [RC] ASDIRECTED 06/18/20 16:42 Isolation [COMM] Routine 06/18/20 16:45 Diabetes Education [RC] Click to Edit Notify Provider [RC] PRN Enoxaparin [Lovenox] 40 mg SUBCUT DAILY@1600 06/18/20 Dinner Regular Diet [DIET] Insulin Lispro [HumaLOG] See Protocol SUBCUT QIDACANDBED metFORMIN [Glucophage] 1,000 mg PO BIDMEALS 06/18/20 18:00 dexAMETHasone [Decadron] 6 mg IVPUSH DAILY@1600 06/18/20 21:00 Balsalazide [Colazal] 3 tab PO BID 06/19/20 09:00 Alogliptin Benzoate [Alogliptin] 25 mg PO DAILY 06/19/20 16:00 Remdesivir (Eua) [Remdesivir (EUA)] 100 mg Sodium Chloride 0.9% [Normal Saline] 100 ml IV Q24H Transfuse Fresh Frozen Plasma [COMM] DAILY 06/19/20 16:30 GLUCOSE POC LAB TO COLLECT JPM [POC] QIDADBED 06/19/20 21:00 GLUCOSE POC LAB TO COLLECT JPM [POC] QIDACANDBED 06/20/20 05:00 CBC WITH AUTO DIFF [HEME] DAILY COMPREHENSIVE METABOLIC PN,CMP [CHEM] DAILY CRP [C-REACTIVE PROTEIN] [CHEM] DAILY D Dimer [D-DIMER QUANTITATIVE] [COAG] DAILY FERRITIN [CHEM] DAILY LACTATE DEHYDROGENASE,LDH [CHEM] DAILY PROCALCITONIN [CHEM] DAILY 06/20/20 07:30 GLUCOSE POC LAB TO COLLECT JPM [POC] QIDACANDBED 06/20/20 11:30 GLUCOSE POC LAB TO COLLECT JPM [POC] QIDACANDBED 06/20/20 16:00 FRESH FROZEN PLASMA [BBK] DAILY Transfuse Fresh Frozen Plasma [COMM] DAILY 06/20/20 16:30 GLUCOSE POC LAB TO COLLECT JPM [POC] QIDACANDBED 06/20/20 16:37 C-REACTIVE PROTEIN [CHEM] DAILY D-DIMER QUANTITATIVE [COAG] DAILY FERRITIN [CHEM] DAILY LACTATE DEHYDROGENASE,LDH [CHEM] DAILY PROCALCITONIN [CHEM] DAILY 06/20/20 16:45 C-REACTIVE PROTEIN [CHEM] DAILY CBC WITH AUTO DIFF [HEME] DAILY COMPREHENSIVE METABOLIC PN,CMP [CHEM] DAILY 06/20/20 21:00 GLUCOSE POC LAB TO COLLECT JPM [POC] QIDACANDBED 06/21/20 05:00 CBC WITH AUTO DIFF [HEME] DAILY COMPREHENSIVE METABOLIC PN,CMP [CHEM] DAILY CRP [C-REACTIVE PROTEIN] [CHEM] DAILY D Dimer [D-DIMER QUANTITATIVE] [COAG] DAILY FERRITIN [CHEM] DAILY LACTATE DEHYDROGENASE,LDH [CHEM] DAILY PROCALCITONIN [CHEM] DAILY 06/21/20 07:30 GLUCOSE POC LAB TO COLLECT JPM [POC] QIDADB06/21/20 11:30 GLUCOSE POC LAB TO COLLECT JPM [POC] QIDADBED 06/21/20 16:00 FRESH FROZEN PLASMA [BBK] DAILY Transfuse Fresh Frozen Plasma [COMM] DAILY 06/21/20 16:30 GLUCOSE POC LAB TO COLLECT JPM [POC] QIDADBED 06/21/20 16:37 C-REACTIVE PROTEIN [CHEM] DAILY D-DIMER QUANTITATIVE [COAG] DAILY FERRITIN [CHEM] DAILY LACTATE DEHYDROGENASE,LDH [CHEM] DAILY PROCALCITONIN [CHEM] DAILY 06/21/20 16:45 C-REACTIVE PROTEIN [CHEM] DAILY CBC WITH AUTO DIFF [HEME] DAILY COMPREHENSIVE METABOLIC PN,CMP [CHEM] DAILY 06/21/20 21:00 GLUCOSE POC LAB TO COLLECT JPM [POC] QIDB06/22/20 05:00 CBC WITH AUTO DIFF [HEME] DAILY COMPREHENSIVE METABOLIC PN,CMP [CHEM] DAILY CRP [C-REACTIVE PROTEIN] [CHEM] DAILY D Dimer [D-DIMER QUANTITATIVE] [COAG] DAILY FERRITIN [CHEM] DAILY LACTATE DEHYDROGENASE,LDH [CHEM] DAILY 06/22/20 07:30 GLUCOSE POC LAB TO COLLECT JPM [POC] DB06/22/20 11:30 GLUCOSE POC LAB TO COLLECT JPM [POC] QIDADBED 06/22/20 16:00 FRESH FROZEN PLASMA [BBK] DAILY Transfuse Fresh Frozen Plasma [COMM] DAILY 06/22/20 16:30 GLUCOSE POC LAB TO COLLECT JPM [POC] QIDADBED 06/22/20 16:37 C-REACTIVE PROTEIN [CHEM] DAILY D-DIMER QUANTITATIVE [COAG] DAILY FERRITIN [CHEM] DAILY LACTATE DEHYDROGENASE,LDH [CHEM] DAILY PROCALCITONIN [CHEM] DAILY 06/22/20 16:45 C-REACTIVE PROTEIN [CHEM] DAILY CBC WITH AUTO DIFF [HEME] DAILY COMPREHENSIVE METABOLIC PN,CMP [CHEM] DAILY 06/22/20 21:00 GLUCOSE POC LAB TO COLLECT JPM [POC] QIDACANDBED 06/23/20 07:30 GLUCOSE POC LAB TO COLLECT JPM [POC] QIDACANDBED 06/23/20 11:30 GLUCOSE POC LAB TO COLLECT JPM [POC] QIDACANDBED 06/23/20 16:30 GLUCOSE POC LAB TO COLLECT JPM [POC] QIDACANDBED 06/23/20 21:00 GLUCOSE POC LAB TO COLLECT JPM [POC] QIDACANDBED 06/24/20 07:30 GLUCOSE POC LAB TO COLLECT JPM [POC] QIDACANDBED 06/24/20 11:30 GLUCOSE POC LAB TO COLLECT JPM [POC] QIDACANDBED 06/24/20 16:30 GLUCOSE POC LAB TO COLLECT JPM [POC] QIDACANDBED 06/24/20 21:00 GLUCOSE POC LAB TO COLLECT JPM [POC] QIDACANDBED 06/25/20 07:30 GLUCOSE POC LAB TO COLLECT JPM [POC] QIDACANDBED 06/25/20 11:30 GLUCOSE POC LAB TO COLLECT JPM [POC] QIDACANDBED 06/25/20 16:30 GLUCOSE POC LAB TO COLLECT JPM [POC] QIDACANDBED 06/25/20 21:00 GLUCOSE POC LAB TO COLLECT JPM [POC] QIDACANDBED 06/26/20 07:30 GLUCOSE POC LAB TO COLLECT JPM [POC] QIDACANDBED 06/26/20 11:30 GLUCOSE POC LAB TO COLLECT JPM [POC] QIDACANDBED 06/26/20 16:30 GLUCOSE POC LAB TO COLLECT JPM [POC] QIDACANDBED 06/26/20 21:00 GLUCOSE POC LAB TO COLLECT JPM [POC] QIDACANDBED 06/27/20 07:30 GLUCOSE POC LAB TO COLLECT JPM [POC] QIDACANDBED 06/27/20 11:30 GLUCOSE POC LAB TO COLLECT JPM [POC] QIDACANDBED 06/27/20 16:30 GLUCOSE POC LAB TO COLLECT JPM [POC] QIDACANDBED 06/27/20 21:00 GLUCOSE POC LAB TO COLLECT JPM [POC] QIDACANDBED 06/28/20 07:30 GLUCOSE POC LAB TO COLLECT JPM [POC] QIDACANDBED 06/28/20 11:30 GLUCOSE POC LAB TO COLLECT JPM [POC] QIDACANDBED 06/28/20 16:30 GLUCOSE POC LAB TO COLLECT JPM [POC] QIDACANDBED 06/28/20 21:00 GLUCOSE POC LAB TO COLLECT JPM [POC] QIDACANDBED 06/29/20 07:30 GLUCOSE POC LAB TO COLLECT JPM [POC] QIDACANDBED 06/29/20 11:30 GLUCOSE POC LAB TO COLLECT JPM [POC] QIDACANDBED 06/29/20 16:30 GLUCOSE POC LAB TO COLLECT JPM [POC] QIDACANDBED 06/29/20 21:00 GLUCOSE POC LAB TO COLLECT JPM [POC] QIDACANDBED 06/30/20 07:30 GLUCOSE POC LAB TO COLLECT JPM [POC] QIDACANDBED 06/30/20 11:30 GLUCOSE POC LAB TO COLLECT JPM [POC] QIDACANDBED 06/30/20 16:30 GLUCOSE POC LAB TO COLLECT JPM [POC] QIDACANDBED 06/30/20 21:00 GLUCOSE POC LAB TO COLLECT JPM [POC] QIDACANDBED - Plan Plan:: ASSESSMENT AND PLAN: 1. HEENT Some loss of taste and smell most c/w COVID 19 2. Cardiac No active issues at present 3. Pulmonary COVID 19 active infection. positive test, elevated CPR, D-dimer, ferritin. On 2-4L NC with good effect - Oxygen to keep SpO2 between 90-96% - Start remdesivir 100 mg IV daily (Day 2/5) - Dexamethasone 6 mg IV daily (Day 2/5) - Convalescent plasma 1 unit daily (Day 2/5) - Hold IV atbx for time being - Proning as appropriate - Discussed progression and course of COVID 19 up to and including possible intubation 4. Gastrointestinal Has known h/o UC which is currently stable - Hold immunosuppresives for time being 5. Renal/F/E/N PO as tolerated Monitor chemistries Caution with IV fluids 6. Endocrine Has h/o Type II DM - Continue metformin - SSI coverage - Anticipate increases in glucose with the initiation of dexamethasone 7. Infectious Disease Stable, COVID 19 as above 8. Neurological No active concerns other than generalized weakness due to COVID 9. Musculoskeletal No issues 10. Heme Stable 11. Psych/Mental health Stable, no active issues Disposition: Anticipate D/C to home when stabilized HOSPITALIST: Pablo Miguel M.D. 19 June 2020; 1336 h
[2020-06-19] MEDS: Enoxaparin 40 MG/0.4 ML Syringe SUBCUT SCH (16:56)
[2020-06-19] MEDS: Dexamethasone 4 MG/ML SDV IVPUSH SCH (16:56)
[2020-06-19] MEDS: REMDESIVIR (EUA) 100 MG in Sodium Chloride 0.9% 100 ML IV SCH (17:00)
[2020-06-20] MEDS: Ondansetron 4 MG Tab.DIS PO PRN (05:49)
[2020-06-20] MEDS: Insulin Lispro 100 Unit/ML 3 ML KwikPen SUBCUT SCH ×4 (08:08→22:09)
[2020-06-20] MEDS: metFORMIN 500 MG Tab PO SCH ×2 (09:20→16:46)
--- NOTE | 2020-06-20 13:50 | PCM.PN ---
- General Info Date of Service: 06/20/20 Admission Dx/Problem (Free Text): 1. COVID 19 PNA 2. Weakness/Hypoxia Subjective Update: Paitent down to 1/2 L oxygen per NC. No other issues this AM. Patient is ambulating without issue or significant dyspnea. Functional Status: Reports: Pain Controlled, Tolerating Diet - Review of Systems General: Reports: Fever, Weakness, Fatigue HEENT: Reports: No Symptoms Pulmonary: Reports: Shortness of Breath, Cough Cardiovascular: Reports: No Symptoms Gastrointestinal: Reports: No Symptoms Genitourinary: Reports: No Symptoms Musculoskeletal: Reports: No Symptoms Skin: Reports: No Symptoms Neurological: Reports: No Symptoms - Patient Data Vitals - Most Recent: Last Vital Signs Temp 97.6 F 06/20/20 11:00 Pulse 63 06/20/20 11:00 Resp 18 06/20/20 11:00 BP 175/86 H 06/20/20 11:00 Pulse Ox 96 06/20/20 11:00 Weight - Most Recent: 236 lb 2 oz I&O - Last 24 Hours: Intake & Output 06/19/20 06/20/20 06/20/20 22:59 06:59 14:59 Intake Total 900 300 720 Output Total 300 850 550 Balance 600 -550 170 Lab Results Last 24 Hours: Laboratory Results - last 24 hr 06/18/20 06/19/20 06/19/20 Range/Units 23:58 16:43 21:00 WBC (4.5-11.0) K/uL RBC (3.30-5.50) M/uL Hgb (12.0-15.0) g/dL Hct (36.0-48.0) % MCV (80-98) fL MCH (27-31) pg MCHC (32-36) % Plt Count (150-400) K/uL Neut % (Auto) (36-66) % Lymph % (Auto) (24-44) % [place] % (Auto) (2-6) % Eos % (Auto) (2-4) % Baso % (Auto) (0-1) % D-Dimer, Quantitative (0.0-500.0) ng/mL Sodium (140-148) mmol/L Potassium (3.6-5.2) mmol/L Chloride (100-108) mmol/L Carbon Dioxide (21-32) mmol/L Anion Gap (5.0-14.0) mmol/L BUN (7-18) mg/dL Creatinine (0.6-1.0) mg/dL Est Cr Clr Drug Dosing mL/min Estimated GFR (MDRD) (>60) Glucose (74-106) mg/dL POC Glucose 171 H 251 H (74-106) MG/DL Calcium (8.5-10.1) mg/dL Ferritin (8-388) ng/ml Total Bilirubin (0.2-1.0) mg/dL AST (15-37) U/L ALT (12-78) U/L Alkaline Phosphatase (46-116) U/L Lactate Dehydrogenase (82-234) U/L C-Reactive Protein (0.0-0.3) mg/dL Total Protein (6.4-8.2) g/dL Albumin (3.4-5.0) g/dL Globulin (2.3-3.5) g/dL Albumin/Globulin Ratio (1.2-2.2) Procalcitonin ng/mL Blood Type A POSITIVE 06/20/20 06/20/20 06/20/20 Range/Units 05:45 05:45 05:45 WBC (4.5-11.0) K/uL RBC (3.30-5.50) M/uL Hgb (12.0-15.0) g/dL Hct (36.0-48.0) % MCV (80-98) fL MCH (27-31) pg MCHC (32-36) % Plt Count (150-400) K/uL Neut % (Auto) (36-66) % Lymph % (Auto) (24-44) % [place] % (Auto) (2-6) % Eos % (Auto) (2-4) % Baso % (Auto) (0-1) % D-Dimer, Quantitative 1592.83 H (0.0-500.0) ng/mL Sodium 138 L (140-148) mmol/L Potassium 3.7 (3.6-5.2) mmol/L Chloride 102 (100-108) mmol/L Carbon Dioxide 26 (21-32) mmol/L Anion Gap 13.7 (5.0-14.0) mmol/L BUN 14 (7-18) mg/dL Creatinine 0.6 (0.6-1.0) mg/dL Est Cr Clr Drug Dosing 87.18 mL/min Estimated GFR (MDRD) > 60 (>60) Glucose 220 H (74-106) mg/dL POC Glucose (74-106) MG/DL Calcium 8.5 (8.5-10.1) mg/dL Ferritin 183 (8-388) ng/ml Total Bilirubin 0.2 (0.2-1.0) mg/dL AST 35 (15-37) U/L ALT 49 (12-78) U/L Alkaline Phosphatase 54 (46-116) U/L Lactate Dehydrogenase 260 H (82-234) U/L C-Reactive Protein 2.43 H (0.0-0.3) mg/dL Total Protein 6.9 (6.4-8.2) g/dL Albumin 2.9 L (3.4-5.0) g/dL Globulin 4.0 H (2.3-3.5) g/dL Albumin/Globulin Ratio 0.7 L (1.2-2.2) Procalcitonin < 0.05 ng/mL Blood Type 06/20/20 06/20/20 06/20/20 Range/Units 05:45 07:30 11:30 WBC 5.5 (4.5-11.0) K/uL RBC 4.57 (3.30-5.50) M/uL Hgb 11.7 L (12.0-15.0) g/dL Hct 36.5 (36.0-48.0) % MCV 80 (80-98) fL MCH 26 L (27-31) pg MCHC 32 (32-36) % Plt Count 326 (150-400) K/uL Neut % (Auto) 68 H (36-66) % Lymph % (Auto) 22 L (24-44) % [place] % (Auto) 10 H (2-6) % Eos % (Auto) 0 L (2-4) % Baso % (Auto) 0 (0-1) % D-Dimer, Quantitative (0.0-500.0) ng/mL Sodium (140-148) mmol/L Potassium (3.6-5.2) mmol/L Chloride (100-108) mmol/L Carbon Dioxide (21-32) mmol/L Anion Gap (5.0-14.0) mmol/L BUN (7-18) mg/dL Creatinine (0.6-1.0) mg/dL Est Cr Clr Drug Dosing mL/min Estimated GFR (MDRD) (>60) Glucose (74-106) mg/dL POC Glucose 180 H 134 H (74-106) MG/DL Calcium (8.5-10.1) mg/dL Ferritin (8-388) ng/ml Total Bilirubin (0.2-1.0) mg/dL AST (15-37) U/L ALT (12-78) U/L Alkaline Phosphatase (46-116) U/L Lactate Dehydrogenase (82-234) U/L C-Reactive Protein (0.0-0.3) mg/dL Total Protein (6.4-8.2) g/dL Albumin (3.4-5.0) g/dL Globulin (2.3-3.5) g/dL Albumin/Globulin Ratio (1.2-2.2) Procalcitonin ng/mL Blood Type Med Orders - Current: Current Medications Acetaminophen (Tylenol) 650 mg PO Q4H PRN PRN Reason: Fever Greater Than 101 Last Admin: 06/19/20 20:21 Dose: 650 mg Documented by: Acetaminophen (Tylenol) 650 mg PO Q4H PRN PRN Reason: Pain (Mild 1-3)/fever Last Admin: 06/18/20 21:34 Dose: 650 mg Documented by: Alogliptin Benzoate (Alogliptin) 25 mg PO DAILY [facility] Last Admin: 06/20/20 09:20 Dose: 25 mg Documented by: Dexamethasone (Decadron) 6 mg IVPUSH DAILY@1600 [facility] Stop: 06/27/20 16:01 Last Admin: 06/19/20 16:56 Dose: 6 mg Documented by: Enoxaparin Sodium (Lovenox) 40 mg SUBCUT DAILY@1600 [facility] Last Admin: 06/19/20 16:56 Dose: 40 mg Documented by: Remdesivir 100 mg/ Sodium (Chloride) 100 mls @ 100 mls/hr IV Q24H [facility] Stop: 06/22/20 16:59 Last Admin: 06/19/20 17:00 Dose: 100 mls/hr Documented by: Insulin Human Lispro (Humalog) 0 unit SUBCUT QIDACANDBED [facility]; Protocol Last Admin: 06/20/20 08:08 Dose: 1 unit Documented by: Metformin HCl (Glucophage) 1,000 mg PO BIDMEALS [facility] Last Admin: 06/20/20 09:20 Dose: 1,000 mg Documented by: (Balsalazide [ Colazal] 3 Tab) Own Med 3 tab PO BID [facility] Last Admin: 06/20/20 09:20 Dose: 3 tab Documented by: Ondansetron HCl (Zofran Odt) 4 mg PO Q6H PRN PRN Reason: Nausea able to take PO Last Admin: 06/20/20 05:49 Dose: 4 mg Documented by: Ondansetron HCl (Zofran) 4 mg IV Q6H PRN PRN Reason: Nausea/Vomiting Discontinued Medications Sodium Chloride (Normal Saline) 1,000 mls @ 999 mls/hr IV ASDIRECTED [facility] Last Admin: 06/18/20 14:07 Dose: 999 mls/hr Documented by: Sodium Chloride (Normal Saline) 1,000 mls @ 250 mls/hr IV ASDIRECTED [facility] Remdesivir 200 mg/ Sodium (Chloride) 250 mls @ 250 mls/hr IV ONETIME ONE Stop: 06/18/20 18:59 Last Admin: 06/18/20 18:16 Dose: 250 mls/hr Documented by: Ondansetron HCl (Zofran) 4 mg IVPUSH ONETIME ONE Stop: 06/18/20 15:28 Last Admin: 06/18/20 16:47 Dose: Not Given Documented by: - Exam Quality Assessment: Supplemental Oxygen, DVT Prophylaxis. No: Central Line/PICC, Urine Catheter General: Alert, Oriented, Cooperative, Mild Distress Lungs: Normal Respiratory Effort, Crackles (Improved) Cardiovascular: Regular Rate, Regular Rhythm, No Murmurs GI/Abdominal Exam: Normal Bowel Sounds, Soft, Non-Tender, No Distention, No Abnormal Bruit, No Mass Skin: Warm, Dry, Intact Neurological: No New Focal Deficit Psy/Mental Status: Alert, Normal Affect, Normal Mood Sepsis Event Note - Evaluation Sepsis Screening Result: No Definite Risk - Focused Exam Vital Signs: Vital Signs Temp Pulse Resp BP Pulse Ox 06/20/20 11:00 97.6 F 63 18 175/86 H 96 06/20/20 07:15 92 L 06/20/20 07:00 98.8 F 18 168/79 H 94 L 06/20/20 02:41 97.6 F 65 18 163/71 H 91 L - Problem List Review Problem List Initiated/Reviewed/Updated: Yes - My Orders Last 24 Hours: My Active Orders 06/19/20 16:00 Remdesivir (Eua) [Remdesivir (EUA)] 100 mg Sodium Chloride 0.9% [Normal Saline] 100 ml IV Q24H Transfuse Fresh Frozen Plasma [COMM] DAILY 06/20/20 16:00 Transfuse Fresh Frozen Plasma [COMM] DAILY 06/20/20 16:30 GLUCOSE POC LAB TO COLLECT JPM [POC] QIDACANDBED 06/20/20 21:00 GLUCOSE POC LAB TO COLLECT JPM [POC] QIDACANDBED 06/21/20 05:00 CBC WITH AUTO DIFF [HEME] DAILY COMPREHENSIVE METABOLIC PN,CMP [CHEM] DAILY CRP [C-REACTIVE PROTEIN] [CHEM] DAILY D Dimer [D-DIMER QUANTITATIVE] [COAG] DAILY FERRITIN [CHEM] DAILY LACTATE DEHYDROGENASE,LDH [CHEM] DAILY PROCALCITONIN [CHEM] DAILY 06/21/20 07:30 GLUCOSE POC LAB TO COLLECT JPM [POC] QIDADBED 06/21/20 11:30 GLUCOSE POC LAB TO COLLECT JPM [POC] QIDACANDBED 06/21/20 16:00 FRESH FROZEN PLASMA [BBK] DAILY Transfuse Fresh Frozen Plasma [COMM] DAILY 06/21/20 16:30 GLUCOSE POC LAB TO COLLECT JPM [POC] QIDACANDBED 06/21/20 16:37 C-REACTIVE PROTEIN [CHEM] DAILY D-DIMER QUANTITATIVE [COAG] DAILY FERRITIN [CHEM] DAILY LACTATE DEHYDROGENASE,LDH [CHEM] DAILY PROCALCITONIN [CHEM] DAILY 06/21/20 16:45 C-REACTIVE PROTEIN [CHEM] DAILY CBC WITH AUTO DIFF [HEME] DAILY COMPREHENSIVE METABOLIC PN,CMP [CHEM] DAILY 06/21/20 21:00 GLUCOSE POC LAB TO COLLECT JPM [POC] QIDACANDBED 06/22/20 05:00 CBC WITH AUTO DIFF [HEME] DAILY COMPREHENSIVE METABOLIC PN,CMP [CHEM] DAILY CRP [C-REACTIVE PROTEIN] [CHEM] DAILY D Dimer [D-DIMER QUANTITATIVE] [COAG] DAILY FERRITIN [CHEM] DAILY LACTATE DEHYDROGENASE,LDH [CHEM] DAILY 06/22/20 07:30 GLUCOSE POC LAB TO COLLECT JPM [POC] QIDACANDBED 06/22/20 11:30 GLUCOSE POC LAB TO COLLECT JPM [POC] QIDACANDBED 06/22/20 16:00 FRESH FROZEN PLASMA [BBK] DAILY Transfuse Fresh Frozen Plasma [COMM] DAILY 06/22/20 16:30 GLUCOSE POC LAB TO COLLECT JPM [POC] QIDACANDBED 06/22/20 16:37 C-REACTIVE PROTEIN [CHEM] DAILY D-DIMER QUANTITATIVE [COAG] DAILY FERRITIN [CHEM] DAILY LACTATE DEHYDROGENASE,LDH [CHEM] DAILY PROCALCITONIN [CHEM] DAILY 06/22/20 16:45 C-REACTIVE PROTEIN [CHEM] DAILY CBC WITH AUTO DIFF [HEME] DAILY COMPREHENSIVE METABOLIC PN,CMP [CHEM] DAILY 06/22/20 21:00 GLUCOSE POC LAB TO COLLECT JPM [POC] QIDACANDBED 06/23/20 07:30 GLUCOSE POC LAB TO COLLECT JPM [POC] QIDACANDBED 06/23/20 11:30 GLUCOSE POC LAB TO COLLECT JPM [POC] QIDACANDBED 06/23/20 16:30 GLUCOSE POC LAB TO COLLECT JPM [POC] QIDACANDBED 06/23/20 21:00 GLUCOSE POC LAB TO COLLECT JPM [POC] QIDACANDBED 06/24/20 07:30 GLUCOSE POC LAB TO COLLECT JPM [POC] QIDACANDBED 06/24/20 11:30 GLUCOSE POC LAB TO COLLECT JPM [POC] QIDACANDBED 06/24/20 16:30 GLUCOSE POC LAB TO COLLECT JPM [POC] QIDACANDBED 06/24/20 21:00 GLUCOSE POC LAB TO COLLECT JPM [POC] QIDACANDBED 06/25/20 07:30 GLUCOSE POC LAB TO COLLECT JPM [POC] QIDACANDBED 06/25/20 11:30 GLUCOSE POC LAB TO COLLECT JPM [POC] QIDACANDBED 06/25/20 16:30 GLUCOSE POC LAB TO COLLECT JPM [POC] QIDACANDBED 06/25/20 21:00 GLUCOSE POC LAB TO COLLECT JPM [POC] QIDACANDBED 06/26/20 07:30 GLUCOSE POC LAB TO COLLECT JPM [POC] QIDACANDBED 06/26/20 11:30 GLUCOSE POC LAB TO COLLECT JPM [POC] QIDACANDBED 06/26/20 16:30 GLUCOSE POC LAB TO COLLECT JPM [POC] QIDACANDBED 06/26/20 21:00 GLUCOSE POC LAB TO COLLECT JPM [POC] QIDACANDBED 06/27/20 07:30 GLUCOSE POC LAB TO COLLECT JPM [POC] QIDACANDBED 06/27/20 11:30 GLUCOSE POC LAB TO COLLECT JPM [POC] QIDACANDBED 06/27/20 16:30 GLUCOSE POC LAB TO COLLECT JPM [POC] QIDACANDBED 06/27/20 21:00 GLUCOSE POC LAB TO COLLECT JPM [POC] QIDACANDBED 06/28/20 07:30 GLUCOSE POC LAB TO COLLECT JPM [POC] QIDACANDBED 06/28/20 11:30 GLUCOSE POC LAB TO COLLECT JPM [POC] QIDACANDBED 06/28/20 16:30 GLUCOSE POC LAB TO COLLECT JPM [POC] QIDACANDBED 06/28/20 21:00 GLUCOSE POC LAB TO COLLECT JPM [POC] QIDACANDBED 06/29/20 07:30 GLUCOSE POC LAB TO COLLECT JPM [POC] QIDACANDBED 06/29/20 11:30 GLUCOSE POC LAB TO COLLECT JPM [POC] QIDACANDBED 06/29/20 16:30 GLUCOSE POC LAB TO COLLECT JPM [POC] QIDACANDBED 06/29/20 21:00 GLUCOSE POC LAB TO COLLECT JPM [POC] QIDACANDBED 06/30/20 07:30 GLUCOSE POC LAB TO COLLECT JPM [POC] QIDACANDBED 06/30/20 11:30 GLUCOSE POC LAB TO COLLECT JPM [POC] QIDACANDBED 06/30/20 16:30 GLUCOSE POC LAB TO COLLECT JPM [POC] QIDACANDBED 06/30/20 21:00 GLUCOSE POC LAB TO COLLECT JPM [POC] QIDACANDBED - Plan Plan:: ASSESSMENT AND PLAN: 1. HEENT Some loss of taste and smell most c/w COVID 19 2. Cardiac No active issues at present 3. Pulmonary COVID 19 active infection. positive test, elevated CPR, D-dimer, ferritin. On 2-4L NC with good effect - Oxygen to keep SpO2 between 90-96% - Start remdesivir 100 mg IV daily (Day 3/) - Dexamethasone 6 mg IV daily (Day 3) - Convalescent plasma 1 unit daily (Day 3) - Hold IV atbx for time being - Proning as appropriate - Overall patient improved today - Could be heading home 1-2 days 4. Gastrointestinal Has known h/o UC which is currently stable - Hold immunosuppresives for time being 5. Renal/F/E/N PO as tolerated Monitor chemistries Caution with IV fluids 6. Endocrine Has h/o Type II DM - Continue metformin - SSI coverage - Anticipate increases in glucose with the initiation of dexamethasone 7. Infectious Disease Stable, COVID 19 as above 8. Neurological No active concerns other than generalized weakness due to COVID 9. Musculoskeletal No issues 10. Heme Stable 11. Psych/Mental health Stable, no active issues Disposition: Anticipate D/C to home when stabilized HOSPITALIST: Pablo Miguel M.D. 20 June 2020; 1349 h
[2020-06-20] MEDS: Acetaminophen 325 MG Tab PO PRN ×2 (16:02→22:19)
[2020-06-20] MEDS: Dexamethasone 4 MG/ML SDV IVPUSH SCH (16:46)
[2020-06-20] MEDS: Enoxaparin 40 MG/0.4 ML Syringe SUBCUT SCH (16:47)
[2020-06-20] MEDS: REMDESIVIR (EUA) 100 MG in Sodium Chloride 0.9% 100 ML IV SCH (16:47)
[2020-06-21] MEDS: metFORMIN 500 MG Tab PO SCH (09:03)
[2020-06-21] MEDS: Insulin Lispro 100 Unit/ML 3 ML KwikPen SUBCUT SCH ×2 (09:04→13:11)
--- NOTE | 2020-06-21 09:09 | CR ---
CHEST: Portable 06/18/2020 at 2:18 PM CLINICAL HISTORY:SOB COMPARISON:None FINDINGS: Heart size and pulmonary vascularity are normal. There is patchy infiltrate in the left lower lobe. There are atherosclerotic changes in the aorta. Impression: Right lower lobe pneumonic infiltrate.
[2020-06-21] MEDS: Acetaminophen 325 MG Tab PO PRN ×2 (09:11→13:13)
[2020-06-21] MEDS ORDERED: Enoxaparin 40 MG/0.4 ML Syringe SUBCUT SCH ×2 (12:00)
[2020-06-21] MEDS ORDERED: REMDESIVIR (EUA) 100 MG in Sodium Chloride 0.9% 100 ML IV SCH (12:00)
[2020-06-21] MEDS ORDERED: Dexamethasone 4 MG/ML SDV IVPUSH SCH ×2 (12:00)
--- NOTE | 2020-06-21 13:27 | PCM.DCSUM1 ---
Discharge Summary - Hospital Course Brief History: Ms. Dobson is a 60-year-old woman who was admitted through the emergency department with weakness and shortness of breath secondary to COVID- 19. - Discharge Data Discharge Date: 06/21/20 Discharge Disposition: Home, Self-Care 01 Condition: Fair - Referral to Home Health Primary Care Physician: PCP None - Discharge Diagnosis/Problem(s) (1) COVID-19 SNOMED Code(s): 420924211 ICD Code: U07.1 - COVID-19 Status: Acute Current Visit: Yes (2) Hypoxia SNOMED Code(s): 597555225 ICD Code: R09.02 - HYPOXEMIA Status: Acute Current Visit: Yes (3) Dehydration SNOMED Code(s): 68935858 ICD Code: E86.0 - DEHYDRATION Status: Acute Current Visit: Yes (4) DM II (diabetes mellitus, type II), controlled SNOMED Code(s): 88042456, 523319451 ICD Code: E11.9 - TYPE 2 DIABETES MELLITUS WITHOUT COMPLICATIONS Status: Chronic Current Visit: No - Patient Summary/Data Hospital Course: 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 Since that time she has had some diminished but not complete loss of taste/smell. She has had weakness, dyspnea, increased work of breathing, cough, fever between 100-101.9 F. 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 She noted, specifically, not being able to get up from the chair. She is currently on 2-4 L NC oxygen and is maintaining her oxygenation in the 92-95% range. Because of hypoxia she was hospitalized and started on remdesivir, Decadron, and convalescent plasma. Over the next few days of hospitalization she improved and by the time of discharge no longer required supplemental oxygen. She was treated with Lovenox for DVT prophylaxis and will be discharged home with an additional 10 days of Lovenox. She will be also discharged with lisinopril 5 mg daily for hypertension and an additional 4 days of dexamethasone. Activity will be as tolerated and she will resume her usual diet. - Patient Instructions Diet: Diabetic Diet Activity: As Tolerated Other/Special Instructions: Follow-up appointment with primary care provider within 1 week - Discharge Plan *PRESCRIPTION DRUG MONITORING PROGRAM REVIEWED*: Not Applicable *COPY OF PRESCRIPTION DRUG MONITORING REPORT IN PATIENT LISBETH: Not Applicable Prescriptions/Med Rec: dexAMETHasone [Dexamethasone] 6 mg PO DAILY #12 tablet Enoxaparin Sodium [Lovenox] 40 mg SQ DAILY #10 syringe lisinopriL [Prinivil] 5 mg PO DAILY #30 tablet Home Medications: Home Meds SitaGLIPtin [Januvia] 100 mg PO DAILY #30 tablet 04/23/15 [Rx] Balsalazide [Colazal] 3 tab PO BID 06/18/20 [History] metFORMIN [Glucophage] 1,000 mg PO BID 06/18/20 [History] Enoxaparin Sodium [Lovenox] 40 mg SQ DAILY #10 syringe 06/21/20 [Rx] dexAMETHasone [Dexamethasone] 6 mg PO DAILY #12 tablet 06/21/20 [Rx] lisinopriL [Prinivil] 5 mg PO DAILY #30 tablet 06/21/20 [Rx] Referrals: Divya Galvez PA [Advanced RN Practitioner] - - Discharge Summary/Plan Comment DC Time >30 min.: No - Patient Data Vitals - Most Recent: Last Vital Signs Temp 98.1 F 06/21/20 13:09 Pulse 70 06/21/20 13:09 Resp 20 06/21/20 13:09 BP 179/83 H 06/21/20 13:09 Pulse Ox 92 L 06/21/20 08:07 Weight - Most Recent: 236 lb 2 oz I&O - Last 24 hours: Intake & Output 06/20/20 06/21/20 06/21/20 22:59 06:59 14:59 Intake Total 902 500 Output Total 300 1200 800 Balance 602 -1200 -300 Lab Results - Last 24 hrs: Laboratory Results - last 24 hr 06/18/20 06/20/20 06/20/20 Range/Units 23:58 16:43 21:00 WBC (4.5-11.0) K/uL RBC (3.30-5.50) M/uL Hgb (12.0-15.0) g/dL Hct (36.0-48.0) % MCV (80-98) fL MCH (27-31) pg MCHC (32-36) % Plt Count (150-400) K/uL Neut % (Auto) (36-66) % Lymph % (Auto) (24-44) % [place] % (Auto) (2-6) % Eos % (Auto) (2-4) % Baso % (Auto) (0-1) % D-Dimer, Quantitative (0.0-500.0) ng/mL Sodium (140-148) mmol/L Potassium (3.6-5.2) mmol/L Chloride (100-108) mmol/L Carbon Dioxide (21-32) mmol/L Anion Gap (5.0-14.0) mmol/L BUN (7-18) mg/dL Creatinine (0.6-1.0) mg/dL Est Cr Clr Drug Dosing mL/min Estimated GFR (MDRD) (>60) Glucose (74-106) mg/dL POC Glucose 130 H 266 H (74-106) MG/DL Calcium (8.5-10.1) mg/dL Ferritin (8-388) ng/ml Total Bilirubin (0.2-1.0) mg/dL AST (15-37) U/L ALT (12-78) U/L Alkaline Phosphatase (46-116) U/L Lactate Dehydrogenase (82-234) U/L C-Reactive Protein (0.0-0.3) mg/dL Total Protein (6.4-8.2) g/dL Albumin (3.4-5.0) g/dL Globulin (2.3-3.5) g/dL Albumin/Globulin Ratio (1.2-2.2) Procalcitonin ng/mL Blood Type A POSITIVE 06/21/20 06/21/20 06/21/20 Range/Units 04:40 04:40 04:40 WBC (4.5-11.0) K/uL RBC (3.30-5.50) M/uL Hgb (12.0-15.0) g/dL Hct (36.0-48.0) % MCV (80-98) fL MCH (27-31) pg MCHC (32-36) % Plt Count (150-400) K/uL Neut % (Auto) (36-66) % Lymph % (Auto) (24-44) % [place] % (Auto) (2-6) % Eos % (Auto) (2-4) % Baso % (Auto) (0-1) % D-Dimer, Quantitative 918.90 H (0.0-500.0) ng/mL Sodium 138 L (140-148) mmol/L Potassium 3.8 (3.6-5.2) mmol/L Chloride 100 (100-108) mmol/L Carbon Dioxide 29 (21-32) mmol/L Anion Gap 12.8 (5.0-14.0) mmol/L BUN 11 (7-18) mg/dL Creatinine 0.8 (0.6-1.0) mg/dL Est Cr Clr Drug Dosing 65.38 mL/min Estimated GFR (MDRD) > 60 (>60) Glucose 223 H (74-106) mg/dL POC Glucose (74-106) MG/DL Calcium 8.9 (8.5-10.1) mg/dL Ferritin 147 (8-388) ng/ml Total Bilirubin 0.2 (0.2-1.0) mg/dL AST 29 (15-37) U/L ALT 49 (12-78) U/L Alkaline Phosphatase 59 (46-116) U/L Lactate Dehydrogenase 269 H (82-234) U/L C-Reactive Protein 1.36 H (0.0-0.3) mg/dL Total Protein 7.2 (6.4-8.2) g/dL Albumin 3.1 L (3.4-5.0) g/dL Globulin 4.1 H (2.3-3.5) g/dL Albumin/Globulin Ratio 0.8 L (1.2-2.2) Procalcitonin < 0.05 ng/mL Blood Type 06/21/20 06/21/20 06/21/20 Range/Units 04:40 07:30 11:30 WBC 6.5 (4.5-11.0) K/uL RBC 4.73 (3.30-5.50) M/uL Hgb 12.2 (12.0-15.0) g/dL Hct 37.9 (36.0-48.0) % MCV 80 (80-98) fL MCH 26 L (27-31) pg MCHC 32 (32-36) % Plt Count 373 (150-400) K/uL Neut % (Auto) 74 H (36-66) % Lymph % (Auto) 18 L (24-44) % [place] % (Auto) 8 H (2-6) % Eos % (Auto) 0 L (2-4) % Baso % (Auto) 0 (0-1) % D-Dimer, Quantitative (0.0-500.0) ng/mL Sodium (140-148) mmol/L Potassium (3.6-5.2) mmol/L Chloride (100-108) mmol/L Carbon Dioxide (21-32) mmol/L Anion Gap (5.0-14.0) mmol/L BUN (7-18) mg/dL Creatinine (0.6-1.0) mg/dL Est Cr Clr Drug Dosing mL/min Estimated GFR (MDRD) (>60) Glucose (74-106) mg/dL POC Glucose 162 H 144 H (74-106) MG/DL Calcium (8.5-10.1) mg/dL Ferritin (8-388) ng/ml Total Bilirubin (0.2-1.0) mg/dL AST (15-37) U/L ALT (12-78) U/L Alkaline Phosphatase (46-116) U/L Lactate Dehydrogenase (82-234) U/L C-Reactive Protein (0.0-0.3) mg/dL Total Protein (6.4-8.2) g/dL Albumin (3.4-5.0) g/dL Globulin (2.3-3.5) g/dL Albumin/Globulin Ratio (1.2-2.2) Procalcitonin ng/mL Blood Type Med Orders - Current: Current Medications Acetaminophen (Tylenol) 650 mg PO Q4H PRN PRN Reason: Fever Greater Than 101 Last Admin: 06/20/20 16:02 Dose: 650 mg Documented by: Acetaminophen (Tylenol) 650 mg PO Q4H PRN PRN Reason: Pain (Mild 1-3)/fever Last Admin: 06/21/20 13:13 Dose: 650 mg Documented by: Alogliptin Benzoate (Alogliptin) 25 mg PO DAILY [facility] Last Admin: 06/21/20 09:03 Dose: 25 mg Documented by: Insulin Human Lispro (Humalog) 0 unit SUBCUT QIDACANDBED [facility]; Protocol Last Admin: 06/21/20 13:11 Dose: Not Given Documented by: Lisinopril (Prinivil) 5 mg PO DAILY [facility] Metformin HCl (Glucophage) 1,000 mg PO BIDMEALS [facility] Last Admin: 06/21/20 09:03 Dose: 1,000 mg Documented by: (Balsalazide [ Colazal] 3 Tab) Own Med 3 tab PO BID [facility] Last Admin: 06/21/20 09:07 Dose: 3 tab Documented by: Ondansetron HCl (Zofran Odt) 4 mg PO Q6H PRN PRN Reason: Nausea able to take PO Last Admin: 06/20/20 05:49 Dose: 4 mg Documented by: Ondansetron HCl (Zofran) 4 mg IV Q6H PRN PRN Reason: Nausea/Vomiting Discontinued Medications Dexamethasone (Decadron) 6 mg IVPUSH DAILY@1600 [facility] Stop: 06/27/20 16:01 Last Admin: 06/20/20 16:46 Dose: 6 mg Documented by: Dexamethasone (Decadron) 6 mg IVPUSH DAILY@1200 [facility] Stop: 06/27/20 12:01 Dexamethasone (Decadron) 6 mg IVPUSH DAILY@1200 [facility] Stop: 06/21/20 12:01 Last Admin: 06/21/20 11:26 Dose: 6 mg Documented by: Enoxaparin Sodium (Lovenox) 40 mg SUBCUT DAILY@1600 [facility] Last Admin: 06/20/20 16:47 Dose: 40 mg Documented by: Enoxaparin Sodium (Lovenox) 40 mg SUBCUT DAILY@1200 [facility] Enoxaparin Sodium (Lovenox) 40 mg SUBCUT DAILY@1200 [facility] Stop: 06/21/20 12:01 Last Admin: 06/21/20 11:25 Dose: 40 mg Documented by: Sodium Chloride (Normal Saline) 1,000 mls @ 999 mls/hr IV ASDIRECTED [facility] Last Admin: 06/18/20 14:07 Dose: 999 mls/hr Documented by: Sodium Chloride (Normal Saline) 1,000 mls @ 250 mls[facility] 200 mg/ Sodium (Chloride) 250 mls @ 250 mls/hr IV ONETIME ONE Stop: 06/18/20 18:59 Last Admin: 06/18/20 18:16 Dose: 250 mls/hr Documented by: Remdesivir 100 mg/ Sodium (Chloride) 100 mls @ 100 mls/hr IV Q24H [facility] Stop: 06/22/20 16:59 Last Admin: 06/20/20 16:47 Dose: 100 mls/hr Documented by: Remdesivir 100 mg/ Sodium (Chloride) 100 mls @ 100 mls/hr IV Q24H [facility] Stop: 06/21/20 12:59 Last Admin: 06/21/20 11:26 Dose: 100 mls/hr Documented by: Ondansetron HCl (Zofran) 4 mg IVPUSH ONETIME ONE Stop: 06/18/20 15:28 Last Admin: 06/18/20 16:47 Dose: Not Given Documented by: - Exam Quality Assessment: Reports: DVT Prophylaxis General: Reports: Alert, Oriented, Cooperative, Mild Distress Lungs: Reports: Clear to Auscultation, Normal Respiratory Effort Cardiovascular: Reports: Regular Rate, Regular Rhythm, No Murmurs GI/Abdominal Exam: Soft, Non-Tender, No Organomegaly, No Distention Extremities: Non-Tender, No Pedal Edema
[2020-06-21] MEDS ORDERED: Lisinopril 5 MG Tab PO SCH (13:30)
[2020-06-21 14:14] VITALS: PULSE 69
[2020-06-21 14:23] VITALS: BP 190/82
== END 2020-06-21 15:20 | disposition home or self-care (01) | DRG 137 ==
LOC: JP.ED 13:35 → JP.2SS 15:30
PROVIDERS: ADMIT Family Medicine; ATTEND Hospitalist
PROC: XW033E5 Introduction of Remdesivir Anti-infective into Peripheral Vein, Percutaneous Approach, New Technology Group 5 (ICD-10-PCS; principal; 2020-06-18)
PROC: 8E0ZXY6 Isolation (ICD-10-PCS; 2020-06-18)
PROC: XW13325 Transfusion of Convalescent Plasma (Nonautologous) into Peripheral Vein, Percutaneous Approach, New Technology Group 5 (ICD-10-PCS; 2020-06-19)
DX: U07.1 COVID-19 (principal); E86.0 Dehydration; E11.9 Type 2 diabetes mellitus without complications; K51.90 Ulcerative colitis, unspecified, without complications; Z90.722 Acquired absence of ovaries, bilateral; Z79.899 Other long term (current) drug therapy; Z79.01 Long term (current) use of anticoagulants; Z79.4 Long term (current) use of insulin; Z99.81 Dependence on supplemental oxygen
CPT/HCPCS: 36415; 36430; 71045; 71045-26; 80053; 81001; 82728; 82962; 83615; 84145; 85025; 85379; 86140; 86900; 86901; 87804; 87804-59; 94762; 99285-25; A9270-GY; J1100; J1650; J1815; J7030; J7050; P9017

== ENCOUNTER 2024-11-01 11:45 | Emergency (ER) | payer BC ==
[2024-11-01 12:18] LABS: APPEARANCE,URINE CLOUDY (CLEAR); BILIRUBIN,URINE NEGATIVE (NEGATIVE); COLOR,URINE YELLOW (YELLOW); GLUCOSE,URINE NEGATIVE (NEGATIVE); KETONES,URINE 15 mg/dL (NEGATIVE); LEUKOCYTE ESTERASE,URINE MODERATE (NEGATIVE); NITRITE,URINE POSITIVE (NEGATIVE); OCCULT BLOOD,URINE SMALL (NEGATIVE); PH,URINE 5.5 (5.0-8.0); PROTEIN,URINE 30 mg/dL (NEGATIVE); UROBILINOGEN,URINE 0.2 EU/dL (0.2-1.0)
[2024-11-01] MEDS ORDERED: Naloxone 0.4 MG/ML SDV IVPUSH PRN (12:22)
[2024-11-01] MEDS ORDERED: HYDROmorphone 0.5 MG/0.5 ML Syringe IVPUSH PRN (12:22)
[2024-11-01] MEDS: Ondansetron 4 MG/2 ML SDV IVPUSH ONE (12:31)
[2024-11-01 12:33] LABS: BASOPHILS PERCENT AUTO 0.3 % (0.1-1.3); EOSINOPHILS PERCENT AUTO 0.3 % (0.0-5.4); HEMATOCRIT 41.8 % (34.3-46.0); HEMOGLOBIN 14.7 g/dL (11.2-15.5); IMMATURE GRAN PERCENT AUTO 0.3 % (0.0-0.7); LYMPHOCYTES ABSOLUTE AUTO 1.17 K/uL (0.8-3.3); LYMPHOCYTES PERCENT AUTO 16.5 % (11.4-47.7); MEAN CORPUSCULAR HEMOGLOBIN 28.5 pg (31.6-35.5); MEAN CORPUSCULAR HGB CONC 35.2 g/dL (31.6-35.5); MONOCYTES ABSOLUTE AUTO 0.68 K/uL (0.20-0.90); MONOCYTES PERCENT AUTO 9.6 % (3.3-12.6); NEUTROPHILS ABSOLUTE AUTO 5.19 K/uL (1.0-7.6); PLATELET COUNT,PLT 293 K/uL (130-375); RED BLOOD CELL COUNT 5.16 M/uL (3.77-5.24); WHITE BLOOD CELL COUNT,WBC 7.1 K/uL (3.2-11.0)
[2024-11-01] MEDS: Sodium Chloride 0.9% 1,000 ML IV ONE ×2 (12:34→14:26)
[2024-11-01 12:37] LABS: AMORPHOUS SEDIMENT,URINE NOT SEEN; BACTERIA,URINE MANY; EPITHELIAL CELLS,URINE FEW; MUCUS,URINE NOT SEEN; WBC,URINE >100 (0-5)
[2024-11-01 12:37] LABS: BASOPHILS ABSOLUTE AUTO 0.02 K/uL (0.00-0.10); EOSINOPHILS ABSOLUTE AUTO 0.02 K/uL (0.00-0.40); IMMATURE GRAN ABSOLUTE AUTO 0.02 K/uL (0.00-0.23)
[2024-11-01 13:06] LABS: A/G RATIO 0.8 (1.2-2.2); ALANINE AMINOTRANSFERASE,ALT 20 U/L (12-78); ALBUMIN 3.5 g/dL (3.4-5.0); ALKALINE PHOSPHATASE 58 U/L (46-116); ASPARTATE AMNIOTRANSFERASE,AST 18 U/L (15-37); BILIRUBIN TOTAL 0.5 mg/dL (0.2-1.0); BLOOD UREA NITROGEN,BUN 9 mg/dL (7-18); C-REACTIVE PROTEIN 5.89 mg/dL (<0.50); CALCIUM 9.7 mg/dL (8.5-10.1); CARBON DIOXIDE,CO2 26 mmol/L (21-32); CHLORIDE,CL 99 mmol/L (100-108); CREATININE 0.8 mg/dL (0.6-1.0); EST CRCL DRUG DOSING (CG) 59.54 mL/min; ESTIMATED GFR 83 mL/min (>60); GLUCOSE RANDOM 147 mg/dL (74-106); POTASSIUM,K 4.1 mmol/L (3.6-5.2); PROTEIN TOTAL,TP 7.8 g/dL (6.4-8.2); SODIUM,NA 136 mmol/L (140-148)
[2024-11-01 13:07] LABS: ANION GAP 15.1 mmol/L (5.0-14.0)
[2024-11-01] MEDS: Sodium Chloride 0.9% 100 ML IV ONE (13:18)
[2024-11-01] MEDS: Sodium Chloride 0.9% 10 ML Syringe FLUSH ONE (13:18)
[2024-11-01] MEDS: Iopamidol 612 MG/ML 100 ML Bottle IV ONE (13:18)
[2024-11-01] MEDS: Sulfamethoxazole/Trimethoprim 800-160 MG Tab PO ONE (14:28)
[2024-11-01 14:31] VITALS: BP 157/83; PULSE 96
== END 2024-11-01 15:39 | disposition home or self-care (01) ==
LOC: JP.ED 11:45
DX: N39.0 Urinary tract infection, site not specified (principal); E86.0 Dehydration; E11.9 Type 2 diabetes mellitus without complications; Z79.84 Long term (current) use of oral hypoglycemic drugs; Z79.899 Other long term (current) drug therapy
CPT/HCPCS: 36415; 74177; 80053; 81001; 83605; 83690; 85025; 86140; 87086; 87088; 87186; 96361; 96374; 99284; A9270; J2405; J7030; Q9967